=== PATIENT | male | born 1960 | race Caucasian/White ===

== ENCOUNTER 2023-01-10 03:21 | Outpatient (RCR) | payer SELFPAY ==
[2022-12-19 12:31] LABS: Abs Immature Grans 0.06 10^3/uL (0.0-0.06); Absolute Eosinophil Count 0.56 10^3/uL (0.0-0.7); Basophils % 0.7; Eosinophils % 3.2; HCT 40.9 % (40.0-50.0); HGB 13.5 g/dL (13.5-17.5); Immature Grans % 0.3; MCH 30.1 pg (27.0-33.0); MCV 91 fL (80-95); MPV 10.7 fL (8.0-11.0); Monocytes % 7.5; Neutrophils % 71.3; Platelet Count 372 10^3/uL (130-400); RBC 4.48 10^6/uL (4.36-5.78); RDW 12.1 % (11.8-14.1); RDW-SD 40.4 fL; WBC 17.51 10^3/uL (4.4-10.8)
[2022-12-19 12:34] LABS: Absolute Basophil Count 0.12 10^3/uL (0.0-0.2); Absolute Lymphocyte Count 2.98 10^3/uL (1.2-3.4); Absolute Monocyte Count 1.31 10^3/uL (0.1-0.8); Absolute Neutrophil Count 12.48 10^3/uL (1.2-6.7)
[2022-12-19] MEDS: Normal Saline Flush 10 ML SYR IVP (12:58)
[2022-12-19 13:01] LABS: ALT 28 U/L (16-63); AST 20 U/L (15-37); Albumin 3.5 g/dL (3.4-5.0); Alkaline Phosphatase 101 U/L (46-116); Anion Gap 8.1 mmol/L (3-11); BUN 24 mg/dL (7-18); Bilirubin, Total 0.2 mg/dL (0.2-1.0); CO2 29.9 mmol/L (21.0-32.0); CREATININE 0.9 mg/dL (0.70-1.30); Calcium 10.3 mg/dL (8.5-10.1); Chloride 101 mmol/L (98-107); Estimated GFR 95.37 (mL/min/1.73m2); Glucose 89 mg/dL (74-106); Magnesium 2.3 mg/dL (1.8-2.4); Potassium 3.9 mmol/L (3.5-5.1); Sodium 139 mmol/L (136-145); Total Protein 7.7 g/dL (6.4-8.2)
[2022-12-26] MEDS: Normal Saline Flush 10 ML SYR IVP (09:55)
[2022-12-26] MEDS: Heparin 500 UNITS/5 ML SYRINGE IV (09:56)
[2022-12-26 10:11] LABS: Absolute Eosinophil Count 0.31 10^3/uL (0.0-0.7); Absolute Monocyte Count 1.14 10^3/uL (0.1-0.8); Basophils % 0.6; Eosinophils % 1.7; HCT 42.9 % (40.0-50.0); HGB 14.3 g/dL (13.5-17.5); Immature Grans % 0.6; Lymphocytes % 11.5; MCH 29.9 pg (27.0-33.0); MCHC 33.3 % (32.0-36.0); MCV 90 fL (80-95); MPV 10.6 fL (8.0-11.0); Monocytes % 6.3; Neutrophils % 79.3; Platelet Count 320 10^3/uL (130-400); RBC 4.78 10^6/uL (4.36-5.78); RDW-SD 39.5 fL; WBC 18.11 10^3/uL (4.4-10.8)
[2022-12-26 10:12] LABS: Absolute Basophil Count 0.11 10^3/uL (0.0-0.2); Absolute Lymphocyte Count 2.08 10^3/uL (1.2-3.4); Absolute Neutrophil Count 14.36 10^3/uL (1.2-6.7)
[2022-12-26 10:38] LABS: ALT 51 U/L (16-63); AST 26 U/L (15-37); Albumin 3.2 g/dL (3.4-5.0); Alkaline Phosphatase 95 U/L (46-116); Anion Gap 4.6 mmol/L (3-11); BUN 36 mg/dL (7-18); Bilirubin, Total 0.5 mg/dL (0.2-1.0); CO2 30.4 mmol/L (21.0-32.0); CREATININE 0.9 mg/dL (0.70-1.30); Calcium 9.6 mg/dL (8.5-10.1); Chloride 101 mmol/L (98-107); Estimated GFR 95.37 (mL/min/1.73m2); Glucose 108 mg/dL (74-106); Magnesium 2.1 mg/dL (1.8-2.4); Potassium 4.2 mmol/L (3.5-5.1); Sodium 136 mmol/L (136-145); Total Protein 7.1 g/dL (6.4-8.2)
[2023-01-02] MEDS: Heparin 500 UNITS/5 ML SYRINGE IV (08:59)
[2023-01-02] MEDS: Normal Saline Flush 10 ML SYR IVP (08:59)
[2023-01-02 09:06] LABS: Abs Immature Grans 0.04 10^3/uL (0.0-0.06); Absolute Basophil Count 0.07 10^3/uL (0.0-0.2); Absolute Eosinophil Count 0.12 10^3/uL (0.0-0.7); Absolute Lymphocyte Count 1.46 10^3/uL (1.2-3.4); Absolute Monocyte Count 0.78 10^3/uL (0.1-0.8); Absolute Neutrophil Count 9.98 10^3/uL (1.2-6.7); Basophils % 0.6; HCT 38.9 % (40.0-50.0); HGB 13.1 g/dL (13.5-17.5); Immature Grans % 0.3; Lymphocytes % 11.7; MCH 30.4 pg (27.0-33.0); MCHC 33.7 % (32.0-36.0); MCV 90 fL (80-95); MPV 10.2 fL (8.0-11.0); Monocytes % 6.3; Neutrophils % 80.1; Platelet Count 169 10^3/uL (130-400); RBC 4.31 10^6/uL (4.36-5.78); RDW 11.9 % (11.8-14.1); RDW-SD 38.7 fL; WBC 12.46 10^3/uL (4.4-10.8)
[2023-01-02 09:33] LABS: ALT 40 U/L (16-63); AST 20 U/L (15-37); Albumin 3.2 g/dL (3.4-5.0); Alkaline Phosphatase 108 U/L (46-116); Anion Gap 3.4 mmol/L (3-11); BUN 23 mg/dL (7-18); Bilirubin, Total 0.2 mg/dL (0.2-1.0); CO2 32.6 mmol/L (21.0-32.0); CREATININE 0.8 mg/dL (0.70-1.30); Calcium 9.4 mg/dL (8.5-10.1); Chloride 102 mmol/L (98-107); Estimated GFR 98.83 (mL/min/1.73m2); Glucose 65 mg/dL (74-106); Magnesium 2.2 mg/dL (1.8-2.4); Potassium 4.3 mmol/L (3.5-5.1); Sodium 138 mmol/L (136-145); Total Protein 6.9 g/dL (6.4-8.2)
[2023-01-10] MEDS: Normal Saline Flush 10 ML SYR IVP (07:39)
[2023-01-10 08:02] LABS: Abs Immature Grans 0.01 10^3/uL (0.0-0.06); Absolute Basophil Count 0.01 10^3/uL (0.0-0.2); Absolute Eosinophil Count 0.19 10^3/uL (0.0-0.7); Absolute Lymphocyte Count 0.76 10^3/uL (1.2-3.4); Absolute Monocyte Count 0.49 10^3/uL (0.1-0.8); Absolute Neutrophil Count 2.19 10^3/uL (1.2-6.7); Basophils % 0.3; Eosinophils % 5.2; HCT 37.2 % (40.0-50.0); HGB 12.4 g/dL (13.5-17.5); Immature Grans % 0.3; Lymphocytes % 20.8; MCH 30.6 pg (27.0-33.0); MCHC 33.3 % (32.0-36.0); MCV 92 fL (80-95); MPV 10.2 fL (8.0-11.0); Monocytes % 13.4; Platelet Count 163 10^3/uL (130-400); RBC 4.05 10^6/uL (4.36-5.78); RDW 12.7 % (11.8-14.1); RDW-SD 40.8 fL; WBC 3.65 10^3/uL (4.4-10.8)
[2023-01-10 08:19] LABS: ALT 32 U/L (16-63); AST 23 U/L (15-37); Albumin 3.2 g/dL (3.4-5.0); Alkaline Phosphatase 106 U/L (46-116); Anion Gap 5.4 mmol/L (3-11); BUN 23 mg/dL (7-18); Bilirubin, Total 0.2 mg/dL (0.2-1.0); CO2 31.6 mmol/L (21.0-32.0); CREATININE 0.8 mg/dL (0.70-1.30); Chloride 103 mmol/L (98-107); Estimated GFR 98.83 (mL/min/1.73m2); Glucose 158 mg/dL (74-106); Magnesium 2.1 mg/dL (1.8-2.4); Potassium 4.1 mmol/L (3.5-5.1); Sodium 140 mmol/L (136-145); Total Protein 6.7 g/dL (6.4-8.2)
== END 2023-01-11 23:59 | disposition home or self-care (01) ==
LOC: INF 03:21
PROVIDERS: PCP Family Medicine; Visit Provider Internal Medicine Hematology & Oncology
DX: Z45.2 Encounter for adjustment and management of vascular access device (principal); C10.3 Malignant neoplasm of posterior wall of oropharynx
CPT/HCPCS: 36591; 80053; 83735; 85025

== ENCOUNTER 2023-02-08 12:05 | Outpatient (RCR) | payer OTHER, SELFPAY ==
[2023-01-17] MEDS: Normal Saline Flush 10 ML SYR IVP (13:03)
[2023-01-17 13:07] LABS: Abs Immature Grans 0.04 10^3/uL (0.0-0.06); Absolute Basophil Count 0.04 10^3/uL (0.0-0.2); Absolute Eosinophil Count 0.07 10^3/uL (0.0-0.7); Absolute Lymphocyte Count 0.81 10^3/uL (1.2-3.4); Absolute Monocyte Count 0.61 10^3/uL (0.1-0.8); Absolute Neutrophil Count 2.74 10^3/uL (1.2-6.7); Basophils % 0.9; Eosinophils % 1.6; HCT 37.6 % (40.0-50.0); HGB 12.6 g/dL (13.5-17.5); Immature Grans % 0.9; Lymphocytes % 18.8; MCH 30.4 pg (27.0-33.0); MCHC 33.5 % (32.0-36.0); MCV 91 fL (80-95); Monocytes % 14.2; Neutrophils % 63.6; Platelet Count 188 10^3/uL (130-400); RBC 4.15 10^6/uL (4.36-5.78); RDW-SD 41.8 fL; WBC 4.31 10^3/uL (4.4-10.8)
[2023-01-17 13:25] LABS: ALT 71 U/L (16-63); AST 33 U/L (15-37); Albumin 3.5 g/dL (3.4-5.0); Alkaline Phosphatase 105 U/L (46-116); Anion Gap 5.7 mmol/L (3-11); BUN 38 mg/dL (7-18); Bilirubin, Total 0.2 mg/dL (0.2-1.0); CO2 31.3 mmol/L (21.0-32.0); Calcium 9.7 mg/dL (8.5-10.1); Chloride 98 mmol/L (98-107); Estimated GFR 84.05 (mL/min/1.73m2); Glucose 94 mg/dL (74-106); Magnesium 2.3 mg/dL (1.8-2.4); Potassium 4.5 mmol/L (3.5-5.1); Sodium 135 mmol/L (136-145); Total Protein 6.9 g/dL (6.4-8.2)
[2023-01-30] MEDS: Normal Saline Flush 10 ML SYR IVP (08:51)
[2023-01-30 09:11] LABS: Absolute Basophil Count 0.01 10^3/uL (0.0-0.2); Absolute Eosinophil Count 0.08 10^3/uL (0.0-0.7); Absolute Monocyte Count 0.31 10^3/uL (0.1-0.8); Absolute Neutrophil Count 1.08 10^3/uL (1.2-6.7); Basophils % 0.5; HCT 31.2 % (40.0-50.0); HGB 10.5 g/dL (13.5-17.5); Lymphocytes % 25.3; MCH 31.3 pg (27.0-33.0); MCHC 33.7 % (32.0-36.0); MCV 93 fL (80-95); MPV 10.2 fL (8.0-11.0); Monocytes % 15.7; Neutrophils % 54.5; RBC 3.35 10^6/uL (4.36-5.78); RDW 13.8 % (11.8-14.1); RDW-SD 42.7 fL
[2023-01-30 09:24] LABS: ALT 27 U/L (16-63); AST 18 U/L (15-37); Albumin 3.1 g/dL (3.4-5.0); Alkaline Phosphatase 106 U/L (46-116); Anion Gap 3.4 mmol/L (3-11); BUN 27 mg/dL (7-18); Bilirubin, Total 0.2 mg/dL (0.2-1.0); CO2 30.6 mmol/L (21.0-32.0); CREATININE 0.8 mg/dL (0.70-1.30); Calcium 8.9 mg/dL (8.5-10.1); Chloride 101 mmol/L (98-107); Estimated GFR 98.83 (mL/min/1.73m2); Glucose 125 mg/dL (74-106); Magnesium 2.1 mg/dL (1.8-2.4); Potassium 4.1 mmol/L (3.5-5.1); Sodium 135 mmol/L (136-145); Total Protein 6.5 g/dL (6.4-8.2)
[2023-01-30 09:34] LABS: Diff Comment Diff Reviewed; Platelet Count 79 10^3/uL (130-400); RBC Morphology Normal; WBC 1.98 10^3/uL (4.4-10.8)
[2023-02-01] MEDS: Normal Saline Flush 10 ML SYR IVP (15:03)
[2023-02-01 15:13] LABS: Absolute Basophil Count 0.01 10^3/uL (0.0-0.2); Absolute Eosinophil Count 0.17 10^3/uL (0.0-0.7); Absolute Monocyte Count 0.45 10^3/uL (0.1-0.8); Absolute Neutrophil Count 1.23 10^3/uL (1.2-6.7); Basophils % 0.4; Eosinophils % 6.9; HCT 29.7 % (40.0-50.0); HGB 10.2 g/dL (13.5-17.5); Lymphocytes % 24.4; MCH 31.5 pg (27.0-33.0); MCHC 34.3 % (32.0-36.0); MCV 92 fL (80-95); MPV 10.1 fL (8.0-11.0); Monocytes % 18.3; RBC 3.24 10^6/uL (4.36-5.78); RDW 14.2 % (11.8-14.1); RDW-SD 43.1 fL; WBC 2.46 10^3/uL (4.4-10.8)
[2023-02-01 15:26] LABS: Diff Comment Agrees w/ Instrument; RBC Morphology Normal
[2023-02-01 15:27] LABS: Platelet Count 89 10^3/uL (130-400)
[2023-02-01 15:29] LABS: ALT 27 U/L (16-63); AST 18 U/L (15-37); Albumin 3.3 g/dL (3.4-5.0); Alkaline Phosphatase 107 U/L (46-116); Anion Gap 6.7 mmol/L (3-11); BUN 27 mg/dL (7-18); Bilirubin, Total 0.3 mg/dL (0.2-1.0); CO2 28.3 mmol/L (21.0-32.0); CREATININE 0.8 mg/dL (0.70-1.30); Calcium 8.9 mg/dL (8.5-10.1); Chloride 99 mmol/L (98-107); Estimated GFR 98.83 (mL/min/1.73m2); Glucose 95 mg/dL (74-106); Potassium 4.1 mmol/L (3.5-5.1); Sodium 134 mmol/L (136-145); Total Protein 6.6 g/dL (6.4-8.2)
[2023-02-08] MEDS: Normal Saline Flush 10 ML SYR IVP (12:17)
[2023-02-08] MEDS: Heparin 500 UNITS/5 ML SYRINGE IV (12:19)
[2023-02-08 12:29] LABS: Abs Immature Grans 0.01 10^3/uL (0.0-0.06); Absolute Basophil Count 0.01 10^3/uL (0.0-0.2); Absolute Eosinophil Count 0.05 10^3/uL (0.0-0.7); Absolute Lymphocyte Count 0.47 10^3/uL (1.2-3.4); Absolute Monocyte Count 0.87 10^3/uL (0.1-0.8); Absolute Neutrophil Count 1.94 10^3/uL (1.2-6.7); Basophils % 0.3; Eosinophils % 1.5; HCT 29.4 % (40.0-50.0); Immature Grans % 0.3; MCH 31.6 pg (27.0-33.0); MCV 93 fL (80-95); Neutrophils % 57.9; Platelet Count 164 10^3/uL (130-400); RBC 3.16 10^6/uL (4.36-5.78); RDW 14.8 % (11.8-14.1); RDW-SD 46.6 fL; WBC 3.35 10^3/uL (4.4-10.8)
[2023-02-08 12:58] LABS: ALT 30 U/L (16-63); AST 16 U/L (15-37); Albumin 3.3 g/dL (3.4-5.0); Alkaline Phosphatase 99 U/L (46-116); Anion Gap 6.6 mmol/L (3-11); BUN 36 mg/dL (7-18); Bilirubin, Total 0.2 mg/dL (0.2-1.0); CO2 31.4 mmol/L (21.0-32.0); Calcium 9.4 mg/dL (8.5-10.1); Chloride 98 mmol/L (98-107); Estimated GFR 84.05 (mL/min/1.73m2); Glucose 95 mg/dL (74-106); Potassium 4.4 mmol/L (3.5-5.1); Sodium 136 mmol/L (136-145); Total Protein 6.6 g/dL (6.4-8.2)
== END 2023-02-10 23:59 | disposition home or self-care (01) ==
LOC: INF 12:05
PROVIDERS: PCP Family Medicine; Visit Provider Internal Medicine Hematology & Oncology
DX: C10.3 Malignant neoplasm of posterior wall of oropharynx (principal); Z45.2 Encounter for adjustment and management of vascular access device
CPT/HCPCS: 36591; 80053; 83735; 85025

== ENCOUNTER 2023-03-13 01:59 | Outpatient (RCR) | payer OTHER, SELFPAY ==
[2023-02-13] MEDS: Normal Saline Flush 10 ML SYR IVP (12:46)
[2023-02-13 12:55] LABS: Abs Immature Grans 0.02 10^3/uL (0.0-0.06); Absolute Basophil Count 0.03 10^3/uL (0.0-0.2); Absolute Eosinophil Count 0.02 10^3/uL (0.0-0.7); Absolute Lymphocyte Count 0.55 10^3/uL (1.2-3.4); Absolute Monocyte Count 1.06 10^3/uL (0.1-0.8); Basophils % 0.7; Eosinophils % 0.4; HCT 26.8 % (40.0-50.0); HGB 9.2 g/dL (13.5-17.5); Immature Grans % 0.4; MCH 32.2 pg (27.0-33.0); MCHC 34.3 % (32.0-36.0); MCV 94 fL (80-95); MPV 9.7 fL (8.0-11.0); Monocytes % 23.1; Neutrophils % 63.4; Platelet Count 141 10^3/uL (130-400); RBC 2.86 10^6/uL (4.36-5.78); RDW 15.1 % (11.8-14.1); RDW-SD 48.3 fL; WBC 4.58 10^3/uL (4.4-10.8)
[2023-02-13 13:11] LABS: ALT 24 U/L (16-63); Alkaline Phosphatase 102 U/L (46-116); Anion Gap 4.7 mmol/L (3-11); BUN 33 mg/dL (7-18); Bilirubin, Total 0.1 mg/dL (0.2-1.0); CO2 29.3 mmol/L (21.0-32.0); CREATININE 1.1 mg/dL (0.70-1.30); Calcium 8.9 mg/dL (8.5-10.1); Chloride 99 mmol/L (98-107); Estimated GFR 74.96 (mL/min/1.73m2); Glucose 98 mg/dL (74-106); Potassium 4.8 mmol/L (3.5-5.1); Sodium 133 mmol/L (136-145); Total Protein 6.2 g/dL (6.4-8.2)
[2023-02-13 13:20] LABS: AST 18 U/L (15-37)
[2023-03-13] MEDS: Heparin 500 UNITS/5 ML SYRINGE IV (13:46)
[2023-03-13] MEDS: Normal Saline Flush 10 ML SYR IVP (13:46)
[2023-03-13 14:06] LABS: Abs Immature Grans 0.01 10^3/uL (0.0-0.06); Absolute Basophil Count 0.01 10^3/uL (0.0-0.2); Absolute Lymphocyte Count 0.69 10^3/uL (1.2-3.4); Absolute Monocyte Count 0.65 10^3/uL (0.1-0.8); Absolute Neutrophil Count 1.99 10^3/uL (1.2-6.7); Basophils % 0.3; Eosinophils % 2.9; HCT 25.7 % (40.0-50.0); HGB 8.7 g/dL (13.5-17.5); Immature Grans % 0.3; MCH 34.9 pg (27.0-33.0); MCHC 33.9 % (32.0-36.0); MCV 103 fL (80-95); MPV 10.1 fL (8.0-11.0); Monocytes % 18.8; Neutrophils % 57.7; Platelet Count 143 10^3/uL (130-400); RBC 2.49 10^6/uL (4.36-5.78); RDW 20.9 % (11.8-14.1); RDW-SD 74.7 fL; WBC 3.45 10^3/uL (4.4-10.8)
[2023-03-13 14:25] LABS: ALT 15 U/L (16-63); AST 13 U/L (15-37); Albumin 3.4 g/dL (3.4-5.0); Alkaline Phosphatase 79 U/L (46-116); Anion Gap 6.3 mmol/L (3-11); BUN 21 mg/dL (7-18); Bilirubin, Total 0.2 mg/dL (0.2-1.0); CO2 29.7 mmol/L (21.0-32.0); CREATININE 0.9 mg/dL (0.70-1.30); Calcium 8.8 mg/dL (8.5-10.1); Chloride 99 mmol/L (98-107); Estimated GFR 95.37 (mL/min/1.73m2); Glucose 104 mg/dL (74-106); Potassium 4.1 mmol/L (3.5-5.1); Sodium 135 mmol/L (136-145); Total Protein 6.2 g/dL (6.4-8.2)
[2023-03-13 14:31] LABS: Anisocytosis 2+; Diff Comment RBC Morph Reviewed
== END 2023-03-13 23:59 | disposition home or self-care (01) ==
LOC: INF 01:59
PROVIDERS: PCP Family Medicine; Visit Provider Internal Medicine Hematology & Oncology
DX: C10.3 Malignant neoplasm of posterior wall of oropharynx (principal); Z45.2 Encounter for adjustment and management of vascular access device
CPT/HCPCS: 36591; 80053; 83735; 85025

== ENCOUNTER 2023-05-10 12:34 | Outpatient (RCR) | payer OTHER, SELFPAY ==
[2023-05-10] MEDS: Normal Saline Flush 10 ML SYR IVP (12:42)
[2023-05-10 13:39] LABS: Abs Immature Grans 0.01 10^3/uL (0.0-0.06); Absolute Basophil Count 0.04 10^3/uL (0.0-0.2); Absolute Eosinophil Count 0.17 10^3/uL (0.0-0.7); Absolute Lymphocyte Count 0.99 10^3/uL (1.2-3.4); Absolute Monocyte Count 0.62 10^3/uL (0.1-0.8); Absolute Neutrophil Count 3.68 10^3/uL (1.2-6.7); Basophils % 0.7; Eosinophils % 3.1; HCT 32.8 % (40.0-50.0); HGB 11.2 g/dL (13.5-17.5); Immature Grans % 0.2; MCH 34.4 pg (27.0-33.0); MCHC 34.1 % (32.0-36.0); MCV 101 fL (80-95); MPV 10.7 fL (8.0-11.0); Monocytes % 11.3; Neutrophils % 66.7; Platelet Count 133 10^3/uL (130-400); RBC 3.26 10^6/uL (4.36-5.78); RDW 11.6 % (11.8-14.1); RDW-SD 42.6 fL; WBC 5.51 10^3/uL (4.4-10.8)
[2023-05-10 14:12] LABS: ALT 16 U/L (16-63); AST 12 U/L (15-37); Albumin 3.7 g/dL (3.4-5.0); Alkaline Phosphatase 83 U/L (46-116); BUN 16 mg/dL (7-18); Bilirubin, Total 0.3 mg/dL (0.2-1.0); Calcium 9.8 mg/dL (8.5-10.1); Chloride 102 mmol/L (98-107); Estimated GFR 84.05 (mL/min/1.73m2); Glucose 84 mg/dL (74-106); Potassium 3.8 mmol/L (3.5-5.1); Sodium 138 mmol/L (136-145); TSH 0.01 uIU/mL (0.36-3.74); Total Protein 6.8 g/dL (6.4-8.2)
== END 2023-05-13 23:59 | disposition home or self-care (01) ==
LOC: INF 12:34
PROVIDERS: PCP Family Medicine; Visit Provider Internal Medicine Hematology & Oncology
DX: C10.3 Malignant neoplasm of posterior wall of oropharynx (principal); Z45.2 Encounter for adjustment and management of vascular access device
CPT/HCPCS: 36591; 80053; 84443; 85025

== ENCOUNTER 2023-07-31 02:01 | Outpatient (RCR) | payer SELFPAY ==
[2023-07-31 11:51] LABS: Abs Immature Grans 0.02 10^3/uL (0.0-0.06); Absolute Basophil Count 0.05 10^3/uL (0.0-0.2); Absolute Eosinophil Count 0.24 10^3/uL (0.0-0.7); Absolute Lymphocyte Count 1.14 10^3/uL (1.2-3.4); Absolute Monocyte Count 0.59 10^3/uL (0.1-0.8); Basophils % 0.7; Eosinophils % 3.5; HCT 36.2 % (40.0-50.0); HGB 12.3 g/dL (13.5-17.5); Immature Grans % 0.3; Lymphocytes % 16.7; MCH 32.3 pg (27.0-33.0); MCV 95 fL (80-95); MPV 10.4 fL (8.0-11.0); Monocytes % 8.6; Neutrophils % 70.2; Platelet Count 198 10^3/uL (130-400); RBC 3.81 10^6/uL (4.36-5.78); RDW 12.5 % (11.8-14.1); RDW-SD 43.7 fL; WBC 6.84 10^3/uL (4.4-10.8)
[2023-07-31 12:28] LABS: ALT 18 U/L (16-63); AST 18 U/L (15-37); Albumin 3.6 g/dL (3.4-5.0); Alkaline Phosphatase 78 U/L (46-116); BUN 15 mg/dL (7-18); Bilirubin, Total 0.3 mg/dL (0.2-1.0); Calcium 9.2 mg/dL (8.5-10.1); Chloride 100 mmol/L (98-107); Estimated GFR 84.05 (mL/min/1.73m2); Glucose 112 mg/dL (74-106); Potassium 4.4 mmol/L (3.5-5.1); Sodium 136 mmol/L (136-145); TSH 0.04 uIU/mL (0.36-3.74); Total Protein 6.7 g/dL (6.4-8.2)
== END 2023-08-13 23:59 | disposition home or self-care (01) ==
LOC: INF 02:01
PROVIDERS: PCP Family Medicine; Visit Provider Internal Medicine Hematology & Oncology
DX: C10.3 Malignant neoplasm of posterior wall of oropharynx (principal); E03.9 Hypothyroidism, unspecified
CPT/HCPCS: 36415; 80053; 84443; 85025

== ENCOUNTER → 2023-08-16 01:42 | Outpatient (CLI) | payer SELFPAY ==
--- NOTE | 2023-08-16 15:12 | DI.RAD_ITS ---
Exam(s) RF MODIFIED SPEECH BA SWALLOW TECHNIQUE: Modified barium swallow was performed in conjunction with speech pathology. CONTRAST MATERIAL: Multiple consistencies of oral barium contrast were administered. COMPARISON: No exams were available for comparison FINDINGS: Note that this is not a dedicated esophagram, distal esophagus not evaluated. Speech pathology report to follow. RADIATION DOSE DELIVERED: traci Cortés=12.1 mGy
[2023-08-16] MEDS: Barium Sulfate 81% w/w for Oral Suspension 148 GM BTL PO (15:14)
[2023-08-16] MEDS: Barium Sulfate 40% W/V 240 ML BTL PO (15:17)
[2023-08-16] MEDS: Barium Sulfate Oral Paste 40% W/V 230 ML TUBE PO (15:18)
--- NOTE | 2023-08-16 15:57 | ST.MBS_ITS ---
Date of Service Date of service: 08/16/23 Time of Service: 14:30 Modified Barium Swallow Study Findings: Video fluoroscopic Swallowing Evaluation (VFSE) / Modified Barium Swallow Study (MBSS) Speech Language Pathology Report Patient referred for VFSE/MBSS from Dr. Huggins given s/p completion of chemo- radiation treatment for SCC of posterior pharyngeal wall with resultant xerostomia and dysphagia. 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 At this time he no longer has a feeding tube and takes all his nutrition by mouth. He reports difficulty with oral-pharyngeal clearance of solids>liquids, and requires frequent sips of water. He does not endorse frequent sensation of aspiration. He also notes that he is edentulous. He did have dentures made since completing XRT, but does not frequently wear them because of discomfort. He eats primarily minced/moist solids and purees/soups at this time, and supplements with 4-5 protein drinks per day. He had his 3 month scans done in April of 2023 which indicated no further evidence of disease. PMHx: Curtis's thyroiditis with hypothyroidism Continued occasional cigarette use. IMPRESSIONS: Swallow safety is impaired; swallow efficiency is impaired. Severe oral- pharyngeal dysphagia characterized by: -Piecemeal deglutition and guarding of liquids and solids leading to asyncronous pharyngeal swallow. -Very poor posterior pharyngeal wall movement, tongue and poor epiglottic inversion. -Brief and poor UES distension. -All leading to significant pharyngeal stasis which results in post-swallow deep penetration vs aspiration AFTER the swallow. -Also complicated by edentulousness. Patient is able to largely keep airway protected by clearing throat but does require intermittent cueing, does not appear entirely sensate to penetrated/aspirated material. Patient appears to be at moderate risk for potential aspiration PNA and/or pulmonary compromise and moderate risk for malnutrition/dehydration. Diet modification is indicated; non-oral nutrition is indicated but may become indicated in future if he is not able to keep up his weight or if functional swallow declines further. Swallow prognosis is fair given: Positive prognostic factors: Motivation, Family/caregiver support, Cognitive status, Negative prognostic factors: Severity, Time since onset, Relative dose of Chemotherapy and/or radiation treatment, Surgical/anatomical factors, and pending patient/caregiver training in risk management as outlined, including use of trialed compensatory strategies. Patient appears to be a good candidate for behavioral swallow rehabilitation. RECOMMENDATIONS: Diet Texture Recommendation:? IDDSI LEVEL SOLIDS 5-Minced & Moist Solids LIQUIDS 0-Thin Liquids Please see further details at?www.iddsi.org [email or web address].iddsi.org/ MEDICATIONS Whole with 0-Thin Liquids Diet texture modification is per patient's preference; please adjust diet textures at patient's discretion & collaboration with care team. Do not alter medications (e.g., cut)? without advice from your MD or pharmacist. Risk Management Strategies:? Behavioral reflux precautions, including upright position during + 90 mins after meals. Small bites, approx [id number] Alternate solids/liquids as able Supraglottic swallow with liquids Multiple swallows per bolus to encourage clearance of pharyngeal stasis/residue Control risk factors for aspiration pneumonia via (a) thorough oral hygiene & (b) maintaining physical mobility as tolerated PLAN: Therapy: Recommend subsequent outpatient session with BEHAVIORAL HEALTH THERAPIST to review results of today's exam and develop treatment plan as appropriate. May consider the following: Oropharyngeal Exercises to target deficits noted in objective section above, Further Compensatory Strategy Training. Further Training/Education in Risk Management Goals: Defer to treating clinician Follow-up exam: Recommend repeat VFSE/MBSS PRN ----- OBJECTIVE Videofluoroscopic Swallow Evaluation (VFSE/MBSS) was conducted in the lateral projection by Speech-Language Pathologist, in collaboration with Radiologist, to evaluate oropharyngeal swallow function. Anatomic view under fluoroscopy: Noting changes at the level of the PES concerning for possible stricture or risk of development of other structural changes as below: PO Barium Contrast Trials Oral barium water-soluble contrast was administered as follows: IDDSI Level 0 Varibar thin liquid (40% w/v) IDDSI Level 2 Varibar nectar thick/mildly thick liquid (40% w/v) IDDSI Level 4 Varibar pudding/pureed/extremely thick (40% w/v) IDDSI Level 7 Regular Solid: 1/2 cookie coated in 3 mL Varibar pudding 13 mm barium tablet taken with Thin Liquids. MBSImP Component Scores: 3 COMPONENT Scale SCORE 1 Lip closure (0-4) 0 Resulted in no labial escape 2 Hold Position (0-3) 0 Maintained a cohesive bolus between tongue to palatal seal 3 Bolus Preparation (0-4) 1 Resulted in slow prolonged chewing/mashing with complete re-collection 4 Bolus Transport (0-4) 2 Was with slowed tongue motion 5 Oral Residue (0-4) 2 Was a collection on oral structures 6 Swallow Initiation (0-4) 1 Occurred when the bolus head was in valleculae 7 Soft Palate Elevation (0-4) 1 Allowed a trace column of contrast or air between soft palate and pharyngeal wall 8 Laryngeal Elevation (0-3) 1 Was decreased with partial superior movement of thyroid cartilage/partial approximation of arytenoids to epiglottic petiole 9 Anterior Hyoid Motion (0-2) 1 Demonstrated partial anterior movement 10 Epiglottic Movement (0-2) 2 Resulted in no inversion 11 Laryngeal Closure (0-2) 1 Was incomplete with narrow a column of air/contrast in laryngeal vestibule 12 Pharyngeal Stripping Wave (0-2) 2 Was absent 13 Pharyngeal Contraction (0-3) NA 14 PES Opening (0-3) 1 Demonstrated partial distension/ partial duration, with partial obstruction of flow 15 Tongue Base Retraction (0-4) 3 Allowed a wide column of contrast or air between the retracted tongue base and the posterior pharyngeal wall 16 Pharyngeal Residue (0-4) 3 Was the majority of contrast within or on pharyngeal structures 17 Esophageal Clearance (0-4) NA Results: 3 COMPONENT Scale SCORE 1 Oral Score (0-18) 6 2 Pharyngeal Score (0-29) 15 3 Esophageal Score (0-4) 0 Penetration-Aspiration Scale: 3 COMPONENT Scale SCORE 1 Thin liquid (1-8) 7 Contrast entered the airway, passed below the vocal folds, and was not ejected from the trachea despite effort. 2 [place] thick (1-8) 5 Contrast entered the airway, contacted the vocal folds, and was not ejected from the airway. 3 Honey thick (1-8) NA 4 Pudding thick (1-8) 1 Contrast did not enter the airway 5 Cookie (1-8) 1 Contrast did not enter the airway Functional Oral Intake Scale: 3 COMPONENT Scale SCORE 1 Pre-Study (1-7) 5 Total oral intake of multiple consistencies requiring special preparation 2 Post-Study (1-7) 5 Total oral intake of multiple consistencies requiring special preparation DIGEST: 3 COMPONENT Scale SCORE 1 Thin Max PAS (1-8) 7 Contrast entered the airway, passed below the vocal folds, and was not ejected from the trachea despite effort. 2 [place] Max PAS (1-8) 5 Contrast entered the airway, contacted the vocal folds, and was not ejected from the airway. 3 Honey Max PAS (1-8) NA 4 Liquid Max PAS (1-8) 7 Maximum PAS Score over all liquid trials 5 Liquid Max Residue (0-3) 1 10 - 49% 6 Pudding Max PAS (1-8) 1 Contrast did not enter the airway 7 Pudding Max Residue (0-3) 2 50 - 90% 8 Cracker Max PAS (1-8) 1 Contrast did not enter the airway 9 Cracker Max Residue (0-3) 3 above 90% 10 Frequency if PAS >= 3 (0-3) 3 Chronic (50% or more of thin liquid trails and/or more than one consistency) 11 Amount if PAS >= 5 (0-1) 0 Not gross Results: 3 COMPONENT Scale SCORE 1 SAFETY GRADE (0-4) 3 Safety grade for swallowing based on patterns of aspiration or laryngeal penetration 2 EFFICIENCY GRADE (0-4) 3 Efficiency grade of swallowing based on patterns of pharyngeal residue 3 DIGEST (0-4) 3 Severity grade of pharyngeal dysphagia: 0 - Normal, 1 - Mild, 2 - Moderate, 3 - Severe, 4 - Life threatening 4 Max Exam PAS (1-8) 7 Maximum PAS Score over all bolus trials 5 Max Exam Residue (0-3) 3 Maximum Exam Residue over all bolus trials Trialed Compensatory Strategies & Outcome: 3 Maneuvers Successful (+) Unsuccessful(-) Postures Successful (+) Unsuccessful(-) 3 second Preparatory Set? ? Chin Tuck Posture? ?- Cough? ? Posterior Head tilt?? ?- ???Reflexive?\Cued? ?+ ? ? Throat Clear? ? Head Tilt to?Reflexive? Left?\Cued? ?+ ? Right? ? Saliva swallow? ?+ Head Turn/ Rotate to? ? Supraglottic Swallow?? ?+ Left? ?- Super- supraglottic Swallow?? ? Right? ?- Bolus Modifications Successful (+) Unsuccessful (-) Delivery/Alternating Consistencies ? Follow with Liquid Wash + ? Follow with Solid Bolus? Delivery/Via Straw? ? Reduced Volume? ?+/- Reduced Rate of Intake? ?+/- Increased Viscosity? ?mild improvement Other:?? ? Thank you for allowing us to take part in this patient's care. Please feel free to contact the [facility] Speech Language Pathology Department with any questions/concerns. Coding CPT Codes MOTION FLUOROSCOPY/SWALLOW - [id number] ([id number])
== END ==
PROVIDERS: PCP Family Medicine; Visit Provider Preventive Medicine Undersea and Hyperbaric Medicine
DX: R13.12 Dysphagia, oropharyngeal phase (principal)
CPT/HCPCS: 92526; 92611; 74221

== ENCOUNTER 2023-11-01 09:05 | Outpatient (RCR) | payer MEDICARE, SELFPAY ==
[2023-11-01 09:22] LABS: Abs Immature Grans 0.03 10^3/uL (0.0-0.06); Absolute Basophil Count 0.06 10^3/uL (0.0-0.2); Absolute Eosinophil Count 0.22 10^3/uL (0.0-0.7); Absolute Lymphocyte Count 0.56 10^3/uL (1.2-3.4); Absolute Neutrophil Count 5.84 10^3/uL (1.2-6.7); Basophils % 0.8; HCT 40.9 % (40.0-50.0); HGB 13.6 g/dL (13.5-17.5); Immature Grans % 0.4; Lymphocytes % 7.7; MCH 31.6 pg (27.0-33.0); MCHC 33.3 % (32.0-36.0); MCV 95 fL (80-95); MPV 10.7 fL (8.0-11.0); Monocytes % 8.2; Neutrophils % 79.9; Platelet Count 159 10^3/uL (130-400); RBC 4.31 10^6/uL (4.36-5.78); RDW 12.7 % (11.8-14.1); RDW-SD 44.4 fL; WBC 7.31 10^3/uL (4.4-10.8)
[2023-11-01 09:51] LABS: ALT 124 U/L (16-63); AST 124 U/L (15-37); Albumin 3.4 g/dL (3.4-5.0); Alkaline Phosphatase 284 U/L (46-116); Anion Gap 5.1 mmol/L (3-11); BUN 19 mg/dL (7-18); Bilirubin, Total 0.4 mg/dL (0.2-1.0); CO2 30.9 mmol/L (21.0-32.0); CREATININE 1.1 mg/dL (0.70-1.30); Calcium 9.2 mg/dL (8.5-10.1); Chloride 100 mmol/L (98-107); FREE T4 1.56 ng/dL (0.76-1.46); Glucose 93 mg/dL (74-106); Magnesium 2.1 mg/dL (1.8-2.4); Sodium 136 mmol/L (136-145); Total Protein 6.6 g/dL (6.4-8.2)
== END 2023-11-12 23:59 | disposition home or self-care (01) ==
LOC: INF 09:05
PROVIDERS: PCP Family Medicine; Visit Provider Internal Medicine Medical Oncology
DX: C34.12 Malignant neoplasm of upper lobe, left bronchus or lung (principal); C78.7 Secondary malignant neoplasm of liver and intrahepatic bile duct; C10.3 Malignant neoplasm of posterior wall of oropharynx; E03.9 Hypothyroidism, unspecified; Z79.899 Other long term (current) drug therapy
CPT/HCPCS: 36415; 80053; 83735; 84439; 84443; 85025

== ENCOUNTER 2023-11-27 05:44 | Outpatient (RCR) | payer MEDICARE, SELFPAY ==
[2023-11-13 13:38] LABS: Absolute Monocyte Count 0.06 10^3/uL (0.1-0.8); HCT 30.8 % (40.0-50.0); HGB 10.8 g/dL (13.5-17.5); MCH 32.2 pg (27.0-33.0); MCHC 35.1 % (32.0-36.0); MCV 92 fL (80-95); MPV 10.5 fL (8.0-11.0); RBC 3.35 10^6/uL (4.36-5.78); RDW-SD 40.8 fL
[2023-11-13 13:58] LABS: Absolute Basophil Count 0.03 10^3/uL (0.0-0.2); Absolute Eosinophil Count 0.04 10^3/uL (0.0-0.7); Absolute Lymphocyte Count 0.77 10^3/uL (1.2-3.4); Atypical Lymphocytes % 5; Platelet Count 32 10^3/uL (130-400)
[2023-11-13 13:59] LABS: Diff Comment Manual Differential; RBC Morphology Normal
[2023-11-13 14:02] LABS: Absolute Neutrophil Count 0.12 10^3/uL (1.2-6.7); WBC 1.03 10^3/uL (4.4-10.8)
[2023-11-13 14:06] LABS: ALT 43 U/L (16-63); AST 32 U/L (15-37); Albumin 3.4 g/dL (3.4-5.0); Alkaline Phosphatase 140 U/L (46-116); Anion Gap 10.4 mmol/L (3-11); BUN 16 mg/dL (7-18); Bilirubin, Total 0.3 mg/dL (0.2-1.0); CO2 25.6 mmol/L (21.0-32.0); CREATININE 0.8 mg/dL (0.70-1.30); Calcium 8.9 mg/dL (8.5-10.1); Chloride 98 mmol/L (98-107); Estimated GFR 98.21 (mL/min/1.73m2); FREE T4 1.37 ng/dL (0.76-1.46); Glucose 75 mg/dL (74-106); Potassium 4.5 mmol/L (3.5-5.1); Sodium 134 mmol/L (136-145); TSH 7.17 uIU/Ml (0.36-3.74); Total Protein 6.4 g/dL (6.4-8.2)
[2023-11-13] MEDS: Normal Saline Flush 10 ML SYR IVP (14:12)
[2023-11-27] MEDS: Normal Saline Flush 10 ML SYR IVP (08:31)
[2023-11-27 08:48] LABS: HCT 31.7 % (40.0-50.0); MCH 32.3 pg (27.0-33.0); MCHC 34.7 % (32.0-36.0); MCV 93 fL (80-95); MPV 9.9 fL (8.0-11.0); Platelet Count 186 10^3/uL (130-400); RBC 3.41 10^6/uL (4.36-5.78); RDW 13.5 % (11.8-14.1); RDW-SD 41.3 fL; WBC 2.98 10^3/uL (4.4-10.8)
[2023-11-27 09:16] LABS: ALT 85 U/L (16-63); AST 108 U/L (15-37); Albumin 3.4 g/dL (3.4-5.0); Alkaline Phosphatase 169 U/L (46-116); Anion Gap 8.1 mmol/L (3-11); BUN 8 mg/dL (7-18); Bilirubin, Total 0.4 mg/dL (0.2-1.0); CO2 26.9 mmol/L (21.0-32.0); Chloride 100 mmol/L (98-107); Estimated GFR 83.52 (mL/min/1.73m2); FREE T4 1.47 ng/dL (0.76-1.46); Glucose 80 mg/dL (74-106); Potassium 4.6 mmol/L (3.5-5.1); Sodium 135 mmol/L (136-145); Total Protein 6.5 g/dL (6.4-8.2)
[2023-11-27 09:43] LABS: Absolute Lymphocyte Count 0.63 10^3/uL (1.2-3.4); Absolute Neutrophil Count 1.73 10^3/uL (1.2-6.7); Bands % 2
[2023-11-27 09:44] LABS: Metamyelocytes % 1
[2023-11-27 09:45] LABS: Diff Comment Manual Differential; RBC Morphology Normal
== END 2023-12-12 23:59 | disposition home or self-care (01) ==
LOC: INF 05:44
PROVIDERS: PCP Family Medicine; Visit Provider Internal Medicine Medical Oncology
DX: C34.12 Malignant neoplasm of upper lobe, left bronchus or lung (principal); C78.7 Secondary malignant neoplasm of liver and intrahepatic bile duct; C10.3 Malignant neoplasm of posterior wall of oropharynx; E03.9 Hypothyroidism, unspecified; Z79.899 Other long term (current) drug therapy; Z45.2 Encounter for adjustment and management of vascular access device
CPT/HCPCS: 36591; 80053; 83735; 84439; 84443; 85025

== ENCOUNTER 2023-12-26 04:59 | Outpatient (RCR) | payer OTHER, SELFPAY ==
[2023-12-18] MEDS: Normal Saline Flush 10 ML SYR IVP (08:30)
[2023-12-18 09:26] LABS: Abs Immature Grans 0.02 10^3/uL (0.0-0.06); Absolute Basophil Count 0.01 10^3/uL (0.0-0.2); Absolute Eosinophil Count 0.09 10^3/uL (0.0-0.7); Absolute Lymphocyte Count 0.75 10^3/uL (1.2-3.4); Absolute Monocyte Count 0.63 10^3/uL (0.1-0.8); Basophils % 0.3 %; Eosinophils % 2.8 %; HCT 27.6 % (40.0-50.0); HGB 9.5 g/dL (13.5-17.5); Immature Grans % 0.6 %; Lymphocytes % 23.4 %; MCHC 34.4 % (32.0-36.0); MCV 96 fL (80-95); Monocytes % 19.7 %; Neutrophils % 53.2 %; RBC 2.88 10^6/uL (4.36-5.78); RDW 16.9 % (11.8-14.1); RDW-SD 52.2 fL
[2023-12-18 09:54] LABS: ALT 42 U/L (16-63); AST 49 U/L (15-37); Albumin 3.3 g/dL (3.4-5.0); Alkaline Phosphatase 104 U/L (46-116); Anion Gap 8.6 mmol/L (3-11); BUN 10 mg/dL (7-18); Bilirubin, Total 0.4 mg/dL (0.2-1.0); CO2 26.4 mmol/L (21.0-32.0); CREATININE 0.9 mg/dL (0.70-1.30); Calcium 8.8 mg/dL (8.5-10.1); Chloride 100 mmol/L (98-107); Estimated GFR 94.78 (mL/min/1.73m2); FREE T4 1.38 ng/dL (0.76-1.46); Glucose 87 mg/dL (74-106); Magnesium 1.9 mg/dL (1.8-2.4); Potassium 4.6 mmol/L (3.5-5.1); Sodium 135 mmol/L (136-145); TSH 6.19 uIU/Ml (0.36-3.74); Total Protein 6.2 g/dL (6.4-8.2)
[2023-12-18 10:12] LABS: Diff Comment Diff Reviewed; Platelet Count 71 10^3/uL (130-400); RBC Morphology Normal
[2023-12-26] MEDS: Normal Saline Flush 10 ML SYR IVP (08:42)
[2023-12-26 08:47] LABS: Abs Immature Grans 0.03 10^3/uL (0.0-0.06); Absolute Basophil Count 0.06 10^3/uL (0.0-0.2); Absolute Eosinophil Count 0.07 10^3/uL (0.0-0.7); Absolute Lymphocyte Count 0.47 10^3/uL (1.2-3.4); Absolute Monocyte Count 0.86 10^3/uL (0.1-0.8); Basophils % 0.7 %; Eosinophils % 0.8 %; HCT 30.2 % (40.0-50.0); HGB 10.5 g/dL (13.5-17.5); Immature Grans % 0.4 %; Lymphocytes % 5.6 %; MCH 33.5 pg (27.0-33.0); MCHC 34.8 % (32.0-36.0); MCV 97 fL (80-95); MPV 10.3 fL (8.0-11.0); Monocytes % 10.3 %; Neutrophils % 82.2 %; Platelet Count 185 10^3/uL (130-400); RBC 3.13 10^6/uL (4.36-5.78); RDW 19.2 % (11.8-14.1); RDW-SD 64.3 fL; WBC 8.39 10^3/uL (4.4-10.8)
[2023-12-26 09:37] LABS: ALT 127 U/L (16-63); AST 165 U/L (15-37); Albumin 3.1 g/dL (3.4-5.0); Alkaline Phosphatase 286 U/L (46-116); Anion Gap 5.3 mmol/L (3-11); BUN 10 mg/dL (7-18); Bilirubin, Total 0.5 mg/dL (0.2-1.0); CO2 29.7 mmol/L (21.0-32.0); Chloride 100 mmol/L (98-107); Estimated GFR 83.52 (mL/min/1.73m2); FREE T4 1.54 ng/dL (0.76-1.46); Glucose 99 mg/dL (74-106); Magnesium 1.9 mg/dL (1.8-2.4); Potassium 4.5 mmol/L (3.5-5.1); Sodium 135 mmol/L (136-145); TSH 7.17 uIU/Ml (0.36-3.74); Total Protein 6.2 g/dL (6.4-8.2)
== END 2024-01-12 23:59 | disposition home or self-care (01) ==
LOC: INF 04:59
PROVIDERS: PCP Physician Assistant; Visit Provider Internal Medicine Medical Oncology
DX: C34.12 Malignant neoplasm of upper lobe, left bronchus or lung (principal); C78.7 Secondary malignant neoplasm of liver and intrahepatic bile duct; Z79.899 Other long term (current) drug therapy
CPT/HCPCS: 36591; 80053; 83735; 84439; 84443; 85025